=== PATIENT | male | born 1985 | race Caucasian/White ===

== ENCOUNTER 2020-04-02 12:03 | Emergency (ER) | payer MEDICAID, SELFPAY ==
--- NOTE | ~2020-04-02 | CT_ITS ---
EXAMINATION: CT soft tissue neck w con EXAM DATE: 04/02/2020 13:36 INDICATION: Left-sided jaw pain. TECHNIQUE: Spiral CT of the neck was performed following intravenous injection of 75 mL Omnipaque 350 . Axial, coronal and sagittal images were reviewed. The dose-length product (DLP) for this examinat ion was 449.05 mGy-cm. The exposure was tailored according to patient size (auto mA exposure control ), and iterative reconstruction (ASIR) was used as additional dose reduction technique. There is no prior study for comparison. FINDINGS: There is scattered dental caries without any adjacent organized abscess identified. The th yroid gland is unremarkable. The submandibular and parotid glands are symmetric. Some left-sided in ternal jugular chain lymph nodes which are upper limits of normal. There is no pathologically enlarge d cervical lymphadenopathy. There are no masses identified. The superior mediastinum is unremarka ble. The airway is unremarkable. Parapharyngeal and pre-glottic fat planes are preserved. The o pacified vasculature is patent. The orbits are unremarkable. Visualized sinuses and mastoid air c ells are well aerated. Lung apices unremarkable. Cervical spine unremarkable. IMPRESSION: 1. Dental caries. No abscess. 2. Left internal jugular chain nodes upper limits of normal, likely reactive. Reviewed, dictated and finalized at location B.
[2020-04-02 12:12] VITALS: BP 127/82; PULSE 93; RESP 16; TEMP 36.4; O2SAT 100
--- NOTE | 2020-04-02 12:14 | ED.GENADULT ---
HPI - General Adult General Chief complaint: Dental/Oral Stated complaint: DENTAL PROBLEM Time Seen by Provider: 04/02/20 12:13 Source: patient Mode of arrival: ambulatory Limitations: no limitations History of Present Illness HPI narrative: 35-year-old male patient presents to the [facility] with complaints of left jaw/neck pain that started about 4 days ago. Patient states he was seen about 2 weeks ago for an abscess on the left upper oral cavity and was treated with Tylenol threes and oral antibiotics. Patient states that it did go away. Patient states he is finishing off his antibiotic which was Keflex that was prescribed to him. Patient states he does have 1 Tylenol 3 left. Patient states that he also took a friend's Vicodin as well has been taking ibuprofen for the pain. Patient rates his pain about 5 out of 6 out of 10 at this time. Patient denies any fevers that he is aware of. Patient denies any actual dental pain. Patient denies any chest pain, shortness of breath. Patient states he noticed a sore lump to the area and states that has been getting worse and wanted to come and get it checked out. Patient states that he did call his dentist today but instructed him to come to the ER for further evaluation. Related Data Allergies Allergy/AdvReac Type Severity Reaction Status Date / Time No Known Allergies Allergy Verified 04/02/20 12:17 Review of Systems Review of Systems: Narrative: CONSTITUTIONAL: Denies fever, chills, or sweats. EYES: Denies visual changes, redness, or discharge. ENT: Denies rhinorrhea, congestion, sore throat, or otalgia. Positive left jaw/left lateral neck area x4 days CARDIOVASCULAR: Denies chest pain, palpitations, or edema. RESPIRATORY: Denies cough or dyspnea. GASTROINTESTINAL: Denies abdominal pain, nausea, vomiting, or diarrhea. GENITOURINARY: Denies dysuria or hematuria. SKIN: Denies rash or itching. MUSCULOSKELETAL: Denies back pain, joint pain, or myalgia. NEUROLOGIC: Denies headache, numbness, or weakness. PSYCHIATRIC: Denies anxiety or depression. FORMERLY [facility] Social History Social History Gender identity (if verbalized by the patient): Male Comments At the time of my signature I agree with nursing past medical history, surgical, social, and family history. There is no relevant family history pertinent to the presenting complaint. Exam Narrative: Exam Narrative: GENERAL: Well-appearing, well-nourished, and in no acute distress. HEAD: Normocephalic, atraumatic. EYES: PERRLA and EOMI. ENT: Nares clear, no rhinorrhea or epistaxis. Mucous membranes moist. Patient has swelling and tenderness noted to the left jaw/neck area under the mandible. There is no warmth noted. There is a broken tooth noted to the left lower wisdom tooth but there is no surrounding erythema that I can see. No obvious abscess is noted to the oral cavity at this time. Posterior pharynx with slight 1+ tonsil enlargement and possibly small white exudate noted on the right side. NECK: Supple. No lymphadenopathy CHEST: Clear to auscultation. No respiratory distress. HEART: Regular rate and rhythm. No murmur heard. Normal peripheral pulses. ABDOMEN: Soft, nontender, nondistended, normal active bowel sounds. EXTREMITIES: Normal range of motion. No edema. SKIN: Warm, dry, no rash. NEURO: No focal deficits. Alert and oriented x3. Course Reevaluation(s) Reevaluation #1: Reevaluated patient after his CT had resulted. Discussed with him that the CT does not show any abscesses which is reassuring. The fact that he does not have any fevers, or systematic symptoms is reassuring. Discussed with him that the CT shows this is most likely just some lymph node swelling which can be normal from his previous infection. Discussed with him that I would encourage him to continue to finish that cephalexin that he was prescribed by his dentist and finish the antibiotics off. Discussed wi
[2020-04-02] MEDS: KETOROLAC (*BKC) 60 MG/2 ML VIAL IM (12:45)
[2020-04-02 12:53] LABS: Basophils Percent Auto 0.3 % (0.2-1.2); Eosinophils Absolute Auto 0.1 K/mm3 (0-0.3); Eosinophils Percent Auto 1.6 % (0-4.4); Hematocrit 51.4 % (42.0-52.0); Hemoglobin 17.6 g/dL (14.0-18.0); Immature Granulocyte Absolute 0.03 K/mm3 (0.00-0.031); Immature Granulocyte Percent A 0.3 % (0-0.5); Lymphocytes Absolute Auto 2.06 K/mm3 (0.9-3.2); Lymphocytes Percent Auto 23.3 % (18.3-44.2); Mean Corpuscular HGB Conc 34.2 g/dl (32-36); Mean Corpuscular Hemoglobin 31.5 pg (26-34); Mean Corpuscular Volume 91.9 fl (80-100); Mean Platelet Volume 10.9 fl (7.4-10.4); Monocytes Absolute Auto 0.7 K/mm3 (0.1-0.6); Monocytes Percent Auto 8.1 % (2.6-8.5); Neutrophils Absolute Auto 5.9 K/mm3 (1.3-6.7); Neutrophils Percent Auto 66.4 % (45.5-73.1); Platelet Count Result 196 k/mm3 (150-375); Red Blood Count 5.59 M/mm3 (4.6-6.20); Red Cell Distribution Width 12.4 % (11.5-14.5); White Blood Count 8.8 K/mm3 (4.5-10.0)
[2020-04-02 13:09] LABS: Alanine Aminotransferase 31 U/L (4-50); Albumin Level 4.6 g/dL (3.5-5.1); Alkaline Phosphatase 85 U/L (38-126); Aspartate Amino Transferase 25 U/L (17-59); Bilirubin,Total 0.6 mg/dL (0.2-1.3); Blood Urea Nitrogen 16 mg/dL (9-20); Carbon Dioxide 28 mmol/L (22-30); Chloride 104 mmol/L (98-107); Estimated CRCL calculation 107 ml/min; Estimated Glomerular Filt Rate > 60; Glucose 94 mg/dL (75-110); Potassium 4.3 mmol/L (3.4-5.0); Sodium 139 mmol/L (137-145)
== END 2020-04-02 14:17 | disposition home or self-care (01) ==
PROVIDERS: Emergency Provider Nurse Practitioner Family
DX: R59.1 Generalized enlarged lymph nodes (principal); K02.9 Dental caries, unspecified
CPT/HCPCS: 36415; 70491; 80053; 85025; 87880; 96372; 99284; J1885; Q9967

== ENCOUNTER 2020-09-05 13:29 | Emergency (ER) | payer OTHER, SELFPAY ==
[2020-09-05] VITALS (11 sets, daily range): BP systolic 129–140; BP diastolic 96–97; PULSE 98–130; RESP 16–27; TEMP 36.2–36.8; O2SAT 94–98
--- NOTE | ~2020-09-05 | XR_ITS ---
EXAMINATION: XR chest 2V EXAM DATE: 09/05/2020 14:03 INDICATION: Generalized chest pain. TECHNIQUE: Frontal and lateral projections of the chest obtained and reviewed. Comparison is made to prior examination from 08/07/2013. FINDINGS: Interval development of small somewhat linear right upper lobe opacity, could be scarring o r atelectasis. Acute infectious process or chronic nodule not excludable. Clinical correlation and on e month follow-up recommended. There are no pleural effusions. The cardiomediastinal silhouette is within normal limits. There is no pneumothorax suspected. The bones and soft tissues are unremarkable. IMPRESSION: Small right upper lobe region which could be atelectasis/scarring. Acute infection or chr onic nodule not excludable. Clinical correlation, one month follow-up recommended. Reviewed, dictated and finalized at location B. 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 Acute infection or chronic nodule not excludable. Clinical correlation, one mon th follow-up recommended.
--- NOTE | ~2020-09-05 | CT_ITS ---
EXAMINATION: CT chest abdomen pelvis w con DATE: 09/05/2020 14:36 INDICATION: Chest pain radiating to the flank. Shortness of breath. TECHNIQUE: Computed tomography (CT) of the chest, abdomen, and pelvis was performed with 100 mL Omnip aque 350 intravenous contrast. Automated exposure control and iterative reconstruction technique were employed. The dose-length product was 619.37 mGy-cm. COMPARISON: CT abdomen and pelvis 07/15/2009 FINDINGS: CHEST CT: There is mild emphysema. There is mild atelectasis bilaterally. Motion artifact is noted. No pleural effusion. The heart size is normal. No pericardial effusion. Thoracic aorta is normal. There is wall thickening of the distal esophagus. ABDOMEN/PELVIS CT: The liver, gallbladder, spleen, pancreas, and adrenal glands are normal. There are cysts in the kidne ys measuring up to 6 mm. There is diverticulosis of the colon without evidence of diverticulitis. The appendix is normal. There are no dilated loops of bowel. There is mild atherosclerosis of the abdomi nal aorta. There are no pathologically enlarged lymph nodes. There is no free intraperitoneal fluid. 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 There is mild lumbar spondylos is. IMPRESSION: 1. Wall thickening of the distal esophagus, likely esophagitis. 2. Mild emphysema. Reviewed, dictated and finalized at location A. PART ROUNDER
--- NOTE | 2020-09-05 13:32 | ECG_ITS ---
Measurements Intervals [place] Rate: 124 P: 12 IA: 115 QRS: 41 QRSD: 101 T: 40 QT: 270 QTc: 389 Interpretive Statements SINUS TACHYCARDIA WITH SHORT IA INTERVAL NONSPECIFIC T-WAVE ABNORMALITY- INF/LAT LEADS BASELINE WANDER- V4 ABNORMAL ECG Electronically Signed On 09-05-2020 13:39:59 DENTAL CHAIR ASSEMBLER by Conor Santana D.O.
[2020-09-05 13:52] LABS: Basophils Absolute Auto 0.1 K/mm3 (0.0-0.1); Basophils Percent Auto 0.3 % (0.2-1.2); Eosinophils Absolute Auto 0.1 K/mm3 (0-0.3); Eosinophils Percent Auto 0.9 % (0-4.4); Hemoglobin 20.4 g/dL (14.0-18.0); Immature Granulocyte Absolute 0.05 K/mm3 (0.00-0.031); Immature Granulocyte Percent A 0.3 % (0-0.5); Lymphocytes Percent Auto 15.2 % (18.3-44.2); Mean Corpuscular HGB Conc 35.2 g/dl (32-36); Mean Corpuscular Hemoglobin 31.7 pg (26-34); Mean Corpuscular Volume 90.1 fl (80-100); Mean Platelet Volume 10.9 fl (7.4-10.4); Monocytes Absolute Auto 1.1 K/mm3 (0.1-0.6); Monocytes Percent Auto 7.4 % (2.6-8.5); Neutrophils Absolute Auto 11.5 K/mm3 (1.3-6.7); Neutrophils Percent Auto 75.9 % (45.5-73.1); Platelet Count Result 230 k/mm3 (150-375); Red Blood Count 6.44 M/mm3 (4.6-6.20); Red Cell Distribution Width 13.2 % (11.5-14.5); White Blood Count 15.2 K/mm3 (4.5-10.0)
[2020-09-05 13:58] LABS: Add Urine Microscopic? YES; Appearance Urine Clear (Clear); Bilirubin Urine Negative (Negative); Blood Urine 1+ (Negative); Color Urine Yellow (Yellow); Glucose Urine UA Negative (Negative); Ketones Urine Negative (Negative); Leukocyte Esterase Ur Negative LEU/UL (Negative); Mucus Urine Heavy /lpf; Nitrate Urine Negative (Negative); Protein Urine 1+ mg/dL (Negative)
--- NOTE | 2020-09-05 14:02 | ED.GENADULT ---
HPI - General Adult General Chief complaint: Unspecified Stated complaint: pain to upper body Time Seen by Provider: 09/05/20 14:01 Source: patient Mode of arrival: ambulatory Limitations: no limitations History of Present Illness HPI narrative: Patient is a 35-year-old male who presents for evaluation of chest pain. Patient with 4-day history of chest pain that radiates to his back, left shoulder and down into his left flank. Described as aching, sharp in nature. At times spasm-like with pain. He has had no associated fever or cough. He denies any current shortness of breath, but states the pain worsens if he takes a deep breath. No recent surgery, long car or air travel. No rhinorrhea, congestion, sore throat or loss of sense of taste or smell. He reports myalgias and arthralgias throughout his body. He denies rash. Patient denies any cardiac history. He reports social alcohol use, tobacco and marijuana use. Related Data Allergies Allergy/AdvReac Type Severity Reaction Status Date / Time No Known Allergies Allergy Verified 04/02/20 12:17 Review of Systems Review of Systems: Narrative: CONSTITUTIONAL: Denies fever, chills, or sweats. EYES: Denies visual changes, redness, or discharge. ENT: Denies rhinorrhea, congestion, sore throat, or otalgia. CARDIOVASCULAR: Reports chest pain without palpitations or edema RESPIRATORY: Denies cough or dyspnea. GASTROINTESTINAL: Denies abdominal pain, nausea, vomiting, or diarrhea. GENITOURINARY: Denies dysuria or hematuria. SKIN: Denies rash or itching. MUSCULOSKELETAL: Reports left lower back pain and myalgias NEUROLOGIC: Denies headache, numbness, or weakness. FOR[facility]LY [facility] Past Medical History Medical History (Updated 09/05/20 @ 15:16 by Liza Ponce MD) No pertinent past medical history Surgical History Surgical History (Updated 09/05/20 @ 14:23 by Liza Ponce MD) H/O inguinal hernia repair Social History Social History (Updated 09/05/20 @ 14:23 by Liza Ponce MD) Smoking status: Current every day smoker Tobacco type: cigarettes Alcohol intake: current Alcohol use details: Social Substance use: current Substance use type: marijuana Gender identity (if verbalized by the patient): Male Exam Narrative: Exam Narrative: GENERAL: Awake, alert, conversant HEAD: Normocephalic, atraumatic. EYES: PERRLA and EOMI. ENT: Nares clear, no rhinorrhea or epistaxis. Mucous membranes moist. NECK: Supple. CHEST: No respiratory distress, breathing even and non labored. No reproducible chest wall pain. HEART: Tachycardic rate, sinus rhythm, no murmur ABDOMEN:Non distended, non tender EXTREMITIES: Normal range of motion. No edema. No calf tenderness bilaterally. SKIN: Warm, dry, no rash. NEURO:No focal deficits. Alert and oriented x3 Course Vital Signs Vital signs: Vital Signs Temperature 36.2 C L 09/05/20 13:39 Pulse Rate 130 H 09/05/20 13:39 Respiratory Rate 16 09/05/20 13:39 Blood Pressure 140/97 H 09/05/20 13:39 Pulse Oximetry 98 09/05/20 13:39 Temperature 36.2 C L 09/05/20 13:39 Pulse Rate 101 H 09/05/20 15:15 Respiratory Rate 24 H 09/05/20 15:15 Blood Pressure 129/96 H 09/05/20 14:05 Pulse Oximetry 96 09/05/20 15:15 Medical Decision Making MDM Narrative Medical decision making narrative: Patient presented for evaluation of myalgias, upper chest pain over the past 4 days. At the time of assessment, patient is tachycardic. Patient afebrile, no hypoxia. Laboratory results obtained and are quite reassuring. He does have a leukocytosis but is quite hemoconcentrated on his CBC. He has a history of hemoconcentration based on prior lab draw. He was given IV fluids, tachycardia resolved. Patient with no blood clot, mass, or acute abdominal pathology or vascular pathology found on imaging. CK is within normal limits. No sign of rhabdomyolysis. No acute kidney injury. No UTI. Patient does not have influenza.
[2020-09-05 14:06] LABS: Anion Gap 12 mmol/L (8-16); Blood Urea Nitrogen 16 mg/dL (9-20); Carbon Dioxide 28 mmol/L (22-30); Chloride 101 mmol/L (98-107); Estimated CRCL calculation 87 ml/min; Estimated Glomerular Filt Rate > 60; Glucose 133 mg/dL (75-110); INR 0.9; Potassium 4.2 mmol/L (3.4-5.0); Sodium 141 mmol/L (137-145)
[2020-09-05 14:07] LABS: Partial Thromboplastin Time 28.8 SECONDS (22.3-36.8)
[2020-09-05] MEDS: ACETAMINOPHEN 500 MG TABLET 1000 MG PO (14:14)
[2020-09-05] MEDS: ASPIRIN 81 MG CHEWABLE TABLET 324 MG PO (14:14)
--- NOTE | 2020-09-05 14:15 | PC.NURSE ---
patient brought back to ED room 2 with c/o sharp pains in his chest for over a week. see triage notes. patient has been in our waiting area due to no beds available in ED. patient changed into gown. placed on playground monitor. EKG done in triage. SL inserted and labs done in triage. alert. oriented. assessments done.
[2020-09-05 14:18] LABS: Troponin I < 0.012 ng/mL (0.000-0.034)
[2020-09-05] MEDS: SODIUM CHLORIDE 0.9% IV 1,000 ML 999 ML IV CONT (14:18)
--- NOTE | 2020-09-05 14:20 | PC.NURSE ---
additional labs drawn as ordered. flu swab done. results pending. IVF and meds given as ordered. patient updated on current treatment plan. has call light in reach.
[2020-09-05 14:24] LABS: Amphetamine Screen Urine Negative (Negative); Barbiturate Screen Urine Negative (Negative); Benzodiazepines Screen Urine Negative (Negative); Cannabinoid Screen Urine Positive (Negative); Cocaine Screen Urine Negative (Negative); Methadone Screen Urine Negative (Negative); Opiate Screen Urine Negative (Negative); Phencyclidine Screen Urine Negative (Negative)
--- NOTE | 2020-09-05 14:35 | PC.NURSE ---
provider at bedside. will also get CT of chest due to symptoms.
[2020-09-05 14:47] LABS: Creatine Kinase 93 U/L (55-170)
[2020-09-05 14:47] LABS: Alanine Aminotransferase 30 U/L (4-50); Albumin Level 5.1 g/dL (3.5-5.1); Alkaline Phosphatase 88 U/L (38-126); Aspartate Amino Transferase 47 U/L (17-59)
[2020-09-05 15:14] LABS: D Dimer 0.27 ug/mL (<0.48)
[2020-09-07 17:05] LABS: SARS-CoV-2 RNA PCR Negative
== END 2020-09-05 15:41 | disposition home or self-care (01) ==
PROVIDERS: Emergency Medicine; Emergency Provider Emergency Medicine
DX: E86.0 Dehydration (principal); M79.10 Myalgia, unspecified site; Z20.828 Contact with and (suspected) exposure to other viral communicable diseases; F17.210 Nicotine dependence, cigarettes, uncomplicated; J43.9 Emphysema, unspecified; R93.3 Abnormal findings on diagnostic imaging of other parts of digestive tract; R00.0 Tachycardia, unspecified; R94.31 Abnormal electrocardiogram [ECG] [EKG]
CPT/HCPCS: 36415; 71046; 71260; 74177; 80053; 80307; 81001; 82550; 83605; 84484; 85025; 85380; 85610; 85730; 87040; 87077; 87635; 87804; 93005; 96360; 99284; A9270; C9803; J7030; Q9967; U0003